=== PATIENT | male | born 1955 | race Caucasian/White ===

== ENCOUNTER 2019-03-24 04:08 | Inpatient (IN) | payer OTHER ==
--- NOTE | 2019-03-24 05:05 | PDOC ---
Attending Attestation - Resident Resident Name: Raghavendra Abarca - ED Attending Attestation I have performed the following: I have examined & evaluated the patient, The case was reviewed & discussed with the resident, I agree w/resident's findings & plan - HPI HPI: 03/24/19 06:10 Pt comes with CP that woke him from sleep and he came to the ER after taking 2 of hs own BP meds as well as 2 baby asa. Here he feels a little better. Pt smokes 2 PPD - Physicial Exam PE: 03/24/19 06:10 Normal exam. Pt is thin - Medical Decision Making 03/24/19 06:01 CBC normal. Chem and cardiac enzyme pending. 03/24/19 06:02 CXR normal heart and mediastinum and hyperinflated lung young of COPD (pt is a 2PPD smoker). 03/24/19 06:04 Pt has elevated trop; however CPK is only 68. We are awaiting rest of chem 03/24/19 06:11 Pt will be admitted to the telelmetry unit for +cardiac enzymes.
--- NOTE | 2019-03-24 05:07 | PDOC ---
History of Present Illness - General Chief Complaint: Chest Pain Stated Complaint: CHEST PAIN Time Seen by Provider: 03/24/19 05:05 History Source: Patient Exam Limitations: No Limitations - History of Present Illness Initial Comments: 03/24/19 05:40 Carolina Hilton is a 63yM with PMHx HTN, HLD, diabetes, smoker, past NH s/p stents presenting with chest pain. Has experienced mild chest pain w exertion for last few days. Woke up from rest at 1am this morning with midline substernal chest pain and bilateral arm pain. Measured BP 180/90, took 2 beta blockers and 2 baby aspirin. In ED, has 3/10 substernal chest pain and associated nausea. Denies fever, n/v, SOB, AB pain, urinary/bowel changes. Past History - Past Medical History Allergies/Adverse Reactions: Allergies Allergy/AdvReac Type Severity Reaction Status Date / Time No Known Allergies Allergy Verified 03/24/19 05:22 Home Medications: Ambulatory Orders NK [No Known Home Medication] 03/24/19 COPD: No - Suicide/Smoking/Psychosocial Hx Smoking History: Current every day smoker Number of Cigarettes Smoked Daily: 20 Information on smoking cessation initiated: Yes Hx Alcohol Use: No Drug/Substance Use Hx: No Review of Systems - Review of Systems Constitutional: No: Chills, Fever HEENTM: No: Eye Pain, Ear Pain, Nose Pain, Throat Pain Respiratory: No: Cough, Shortness of Breath, Stridor, Wheezing Cardiac (ROS): Yes: Chest Pain (midsternal). No: Palpitations, Syncope, Chest Tightness ABD/GI: No: Abdominal Distended, Constipated, Diarrhea, Nausea, Vomiting : No: Burning, Dysuria, Discharge, Flank Pain, Hematuria, Incontinence Musculoskeletal: No: Back Pain, Joint Pain, Muscle Pain, Muscle Weakness Integumentary: No: Bruising, Erythema, Flushing, Lesions Neurological: No: Headache, Paresthesia, Seizure, Tingling, Tremors Psychiatric: No: Anxiety, Depression Endocrine: No: Excessive Sweating, Flushing, Intolerance to Cold, Intolerance to Heat Hematologic/Lymphatic: No: Anemia, Blood Clots, Easy Bleeding *Physical Exam - Vital Signs Last Vital Signs Temp Pulse Resp BP Pulse Ox 98.0 F 66 18 136/76 95 03/24/19 04:20 03/24/19 04:20 03/24/19 04:20 03/24/19 04:20 03/24/19 04:20 - Physical Exam General Appearance: Yes: Nourished, Appropriately Dressed, Mild Distress HEENT: positive: EOMI, ISH, Normal Voice, Hearing Grossly Normal. negative: Scleral Icterus (R), Scleral Icterus (L) Respiratory/Chest: positive: Lungs Clear, Normal Breath Sounds. negative: Chest Tender, Respiratory Distress, Crackles, Rales, Rhonchi, Stridor, Wheezing Cardiovascular: positive: Regular Rhythm, Regular Rate, S1, S2, JVD (to mandible ). negative: Edema, Murmur Gastrointestinal/Abdominal: positive: Normal Bowel Sounds, Flat, Soft. negative : Tender, Organomegaly, Distended, Guarding, Rebound, Hernia Integumentary: positive: Normal Color. negative: Cyanotic, Clammy, Diaphoresis Neurologic: positive: Fully Oriented, Alert, Normal Mood/Affect, Normal Response , Responsive. negative: Confused, Disoriented ED Treatment Course - LABORATORY CBC & Chemistry Diagram: 03/24/19 05:25 03/24/19 05:25 - ADDITIONAL ORDERS Additional order review: Laboratory Results 03/24/19 03/24/19 03/24/19 05:30 05:25 05:25 PT with INR 13.30 H INR 1.13 H Sodium 140 Potassium 4.0 Chloride 107 Carbon Dioxide 26 Anion Gap 7 L BUN 15.6 Creatinine 0.9 Est GFR (CKD-EPI)AfAm 104.24 Est GFR (CKD-EPI)NonAf 89.94 Random Glucose 202 H Calcium 8.8 Total Bilirubin 0.4 AST 10 L ALT 21 Alkaline Phosphatase 82 Creatine Kinase 68 Troponin I 0.21 H Total Protein 7.5 Albumin 3.5 03/24/19 05:25 RBC 5.47 MCV 86.1 MCHC 34.6 RDW 13.8 MPV 9.3 Neutrophils % 70.7 Lymphocytes % 20.2 Monocytes % 6.1 Eosinophils % 2.4 Basophils % 0.6 - Medications Given in the ED: ED Medications Discontinued Medications Generic Name Dose Route Start Last Admin Trade Name Freq PRN Reason Stop Dose Admin Enoxaparin Sodium 80 mg 03/24/19 06:12 03/24/19 06:55 Lovenox - SQ 08/10/19 06:13 80 mg ONCE ONE Administration Ondansetron HCl 4 mg 03/24/19 05:20 03/24/19 05:29 Zofran Odt - SL 03/24/19 05:21 4 mg ONCE ONE Administration Medical Decision Making - Medical Decision Making 03/24/19 06:10 CBC CMP trop EKG CXR EKG shows sinus bradycardia w PVCs trop 0.21 CXR normal Carolina Hilton is a 63yM with PMHx HTN, HLD, diabetes, smoker, past NH s/p stents presenting with chest pain. ACS likely given hx of NH, multiple cardiac risk factors. Given zofran for nausea. EKG showed sinus bradycardia w PVCs. Given 80sq lovenox Plan to admit to Dr. Verduzco inpatient for chest pain, +trop 0.21 - pending EKG - add on BNP Signed out to Dr. Pineda. *DC/Admit/Observation/Transfer Diagnosis at time of Disposition: Chest pain Qualifiers: Chest pain type: unspecified Qualified Code(s): R07.9 - Chest pain, unspecified - Discharge Dispostion Condition at time of disposition: Improved - Referrals - Patient Instructions - Post Discharge Activity
[2019-03-24] MEDS ORDERED: ONDANSETRON *ODT* 4 MG TABLET SL ONE (05:20)
[2019-03-24 05:48] LABS: BASO % 0.6 % (0-2.0); EOS % 2.4 % (0-4.5); HEMATOCRIT 47.1 % (35.4-49); HEMOGLOBIN 16.3 GM/dL (11.7-16.9); LYMPH % 20.2 % (8-40); MCH 29.7 pg (25.7-33.7); MCHC 34.6 g/dl (32.0-35.9); MEAN CELL VOLUME 86.1 fl (80-96); MEAN PLT VOLUME 9.3 fl (7.5-11.1); MONO % 6.1 % (3.8-10.2); NEUT % 70.7 % (42.8-82.8); PLATELET COUNT 163 K/MM3 (134-434); RBC 5.47 M/mm3 (4.00-5.60); RDW 13.8 % (11.9-15.9); WHITE BLOOD COUNT 7.4 K/mm3 (4.0-10.0)
[2019-03-24 06:07] LABS: ALBUMIN 3.5 g/dl (3.4-5.0); BILIRUBIN,TOTAL 0.4 mg/dL (0.2-1); BLOOD UREA NITROGEN 15.6 mg/dL (7-18); CALCIUM 8.8 mg/dL (8.5-10.1); CREATININE 0.9 mg/dL (0.55-1.3); TOT PROT 7.5 g/dl (6.4-8.2)
[2019-03-24] MEDS ORDERED: ENOXAPARIN NA (PORCINE) 80 MG/0.8 ML DISP.SYRIN SQ ONE ×2 (06:12→06:31)
[2019-03-24 06:54] LABS: INR 1.13 (0.83-1.09); PROTHROMBIN TIME (PATIENT) 13.3 SEC (9.7-13.0)
[2019-03-24] MEDS ORDERED: ACETAMINOPHEN 325 MG TABLET (FP) PO PRN (11:36)
--- NOTE | 2019-03-24 11:44 | HP ---
<Sandra Rosas - Last Filed: 03/24/19 14:19> CHIEF COMPLAINT: chest pain PCP: Dr. Casandra Keene Restaurant District Manager: Dr. Mobley HISTORY OF PRESENT ILLNESS: 63M w/ pmhx of SC x4-5 years ago (s/p 3 stents placed), HLD, HTN presents to the ED with complaints of chest pain. Pt states around 1 am, he woke up on his own to make coffee, when he started feeling sub-sternal chest pain radiating to his b/l UE. States this pain was different than the chest pain he had experienced when he had an SC several years ago. Pain began at rest. After experiencing the pain, he reports taking 2 doses of baby aspirin and then proceeded to the hospital. Pt states he can walk up to 300 ft before he starts feeling pain in his b/l LE. Denies n/v, sob, wilson, lightheadedness. Admits to mild dizziness. Pt currently follows up with his business objects report developer, Dr. Mobley. Reports having a 24-hour outpatient spray machine operator at home about 1 year ago, with normal results, although cardiac monitoring was supposed to be done x1 week according to patient. 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 Family History: Father- SC, ~70 y/o, DM, stroke Allergies No Known Allergies Allergy (Verified 03/24/19 05:22) HOME MEDICATIONS: Home Medications Medication Instructions Recorded NK [No Known Home Medication] 03/24/19 REVIEW OF SYSTEMS CONSTITUTIONAL: Absent: fever, chills, diaphoresis, generalized weakness, malaise, loss of appetite, weight change HEENT: Absent: rhinorrhea, nasal congestion, throat pain, throat swelling, difficulty swallowing, mouth swelling, ear pain, eye pain, visual changes CARDIOVASCULAR: chest pain Absent: syncope, palpitations, irregular heart rate, lightheadedness, peripheral edema RESPIRATORY: Absent: cough, shortness of breath, dyspnea with exertion, orthopnea, wheezing, stridor, hemoptysis GASTROINTESTINAL: Absent: abdominal pain, abdominal distension, nausea, vomiting, diarrhea, constipation, melena, hematochezia GENITOURINARY: Absent: dysuria, frequency, urgency, hesitancy, hematuria, flank pain, genital pain MUSCULOSKELETAL: Absent: myalgia, arthralgia, joint swelling, back pain, neck pain SKIN: Absent: rash, itching, pallor HEMATOLOGIC/IMMUNOLOGIC: Absent: easy bleeding, easy bruising, lymphadenopathy, frequent infections ENDOCRINE: Absent: unexplained weight gain, unexplained weight loss, heat intolerance, cold intolerance NEUROLOGIC: Absent: headache, focal weakness or paresthesias, dizziness, unsteady gait, seizure, mental status changes, bladder or bowel incontinence PSYCHIATRIC: Absent: anxiety, depression, suicidal or homicidal ideation, hallucinations. PHYSICAL EXAMINATION Vital Signs - 24 hr 03/24/19 04:20 Temperature 98.0 F Pulse Rate 66 Respiratory 18 Rate Blood Pressure 136/76 O2 Sat by Pulse 95 Oximetry (%) GENERAL: AAOx3. NAD. Well-appearing. HEENT: AT/NC. EOMI. ISH. Moist mucus membranes Neck: Supple, no JVD. CV: RRR. Normal S1, S2. No murmurs noted. No reproducible tenderness. Lungs: CTA B/L. No wheezes, rhonchi, rales noted. Abd: Soft, NT/ND. +BS. No hepatsplenomegaly. Ext: No peripheral edema noted. Laboratory Results - last 24 hr 03/24/19 03/24/19 03/24/19 05:25 05:25 05:25 WBC 7.4 RBC 5.47 Hgb 16.3 Hct 47.1 MCV 86.1 MCH 29.7 MCHC 34.6 RDW 13.8 Plt Count 163 MPV 9.3 Absolute Neuts (auto) 5.3 Neutrophils % 70.7 Lymphocytes % 20.2 Monocytes % 6.1 Eosinophils % 2.4 Basophils % 0.6 Nucleated RBC % 0 PT with INR INR Sodium 140 Potassium 4.0 Chloride 107 Carbon Dioxide 26 Anion Gap 7 L BUN 15.6 Creatinine 0.9 Est GFR (CKD-EPI)AfAm 104.24 Est GFR (CKD-EPI)NonAf 89.94 Random Glucose 202 H Calcium 8.8 Total Bilirubin 0.4 AST 10 L ALT 21 Alkaline Phosphatase 82 Creatine Kinase 68 Troponin I 0.21 H Total Protein 7.5 Albumin 3.5 03/24/19 05:30 WBC RBC Hgb Hct MCV MCH MCHC RDW Plt Count MPV Absolute Neuts (auto) Neutrophils % Lymphocytes % Monocytes % Eosinophils % Basophils % Nucleated RBC % PT with INR 13.30 H INR 1.13 H Sodium Potassium Chloride Carbon Dioxide Anion Gap BUN Creatinine Est GFR (CKD-EPI)AfAm Est GFR (CKD-EPI)NonAf Random Glucose Calcium Total Bilirubin AST ALT Alkaline Phosphatase Creatine Kinase Troponin I Total Protein Albumin Imaging: * CXR: neg ASSESSMENT/PLAN: 63M w/ pmhx of SC x4-5 years ago (s/p 3 stents placed), HLD, HTN presents to the ED with complaints of chest pain. #Chest pain, r/o ACS -Pt has significant history of SC and cardiac stents in the past putting him at a higher cardiac risk. -EKG showed sinus juliet with PVCs -Lovenox 80 mg SQ x1 given in ED -Loading dose Plavix 300 x1 given, then 75 daily -Atorvastatin 40 mg QD -Cardio consult ordered (Dr. Mendosa); possible need for cath -Trops 0.21 --> 0.34; cont to trend, next at 6pm -Echo pending #HTN -hold home Losartan #HLD -Atorvastatin 40 -lipid panel pending #Prophylaxis -DVT: On Lovenox FEN -PO hydration -recheck lytes in AM -low sodium diet Dispo -admit to tele Visit type - Emergency Visit Emergency Visit: Yes ED Registration Date: 03/24/19 Care time: The patient presented to the Emergency Department on the above date and was hospitalized for further evaluation of their emergent condition. - New Patient This patient is new to me today: Yes Date on this admission: 03/24/19 - Critical Care Critical Care patient: No ATTENDING PHYSICIAN STATEMENT I saw and evaluated the patient. I reviewed the resident's note and discussed the case with the resident. I agree with the resident's findings and plan as documented. SUBJECTIVE: OBJECTIVE: ASSESSMENT AND PLAN: <Luis He - Last Filed: 03/24/19 16:34> CHIEF COMPLAINT: PCP: HISTORY OF PRESENT ILLNESS: ER course was notable for: (1) (2) (3) Recent Travel: PAST MEDICAL HISTORY: PAST SURGICAL HISTORY: Social History: Smoking: Alcohol: Drugs: Family History: Allergies No Known Allergies Allergy (Verified 03/24/19 05:22) HOME MEDICATIONS: Home Medications Medication Instructions Recorded Losartan Potassium 25 mg PO DAILY 03/24/19 Omeprazole 40 mg PO DAILY 03/24/19 Simvastatin 10 mg PO DAILY 03/24/19 metFORMIN HCL [Metformin HCl] 500 mg PO TID 03/24/19 REVIEW OF SYSTEMS CONSTITUTIONAL: Absent: fever, chills, diaphoresis, generalized weakness, malaise, loss of appetite, weight change HEENT: Absent: rhinorrhea, nasal congestion, throat pain, throat swelling, difficulty swallowing, mouth swelling, ear pain, eye pain, visual changes CARDIOVASCULAR: Absent: chest pain, syncope, palpitations, irregular heart rate, lightheadedness , peripheral edema RESPIRATORY: Absent: cough, shortness of breath, dyspnea with exertion, orthopnea, wheezing, stridor, hemoptysis GASTROINTESTINAL: Absent: abdominal pain, abdominal distension, nausea, vomiting, diarrhea, constipation, melena, hematochezia GENITOURINARY: Absent: dysuria, frequency, urgency, hesitancy, hematuria, flank pain, genital pain MUSCULOSKELETAL: Absent: myalgia, arthralgia, joint swelling, back pain, neck pain SKIN: Absent: rash, itching, pallor HEMATOLOGIC/IMMUNOLOGIC: Absent: easy bleeding, easy bruising, lymphadenopathy, frequent infections ENDOCRINE: Absent: unexplained weight gain, unexplained weight loss, heat intolerance, cold intolerance NEUROLOGIC: Absent: headache, focal weakness or paresthesias, dizziness, unsteady gait, seizure, mental status changes, bladder or bowel incontinence PSYCHIATRIC: Absent: anxiety, depression, suicidal or homicidal ideation, hallucinations. PHYSICAL EXAMINATION Vital Signs - 24 hr 03/24/19 03/24/19 04:20 13:00 Temperature 98.0 F 97.9 F Pulse Rate 66 58 L Respiratory 18 17 Rate Blood Pressure 136/76 123/55 L O2 Sat by Pulse 95 96 Oximetry (%) GENERAL: Awake, alert, and fully oriented, in no acute distress. HEAD: Normal with no signs of trauma. EYES: Pupils equal, round and reactive to light, extraocular movements intact, sclera anicteric, conjunctiva clear. No lid lag. EARS, NOSE, THROAT: Ears normal, nares patent, oropharynx clear without exudates. Moist mucous membranes. NECK: Normal range of motion, supple without lymphadenopathy, JVD, or masses. LUNGS: Breath sounds equal, clear to auscultation bilaterally. No wheezes, and no crackles. No accessory muscle use. HEART: Regular rate and rhythm, normal S1 and S2 without murmur, rub or gallop. ABDOMEN: Soft, nontender, not distended, normoactive bowel sounds, no guarding, no rebound, no masses. No hepatomegaly or splenomegaly. MUSCULOSKELETAL: Normal range of motion at all joints. No bony deformities or tenderness. No CVA tenderness. UPPER EXTREMITIES: 2+ pulses, warm, well-perfused. No cyanosis. No clubbing. No peripheral edema. LOWER EXTREMITIES: 2+ pulses, warm, well-perfused. No calf tenderness. No peripheral edema. NEUROLOGICAL: Cranial nerves II-XII intact. Normal speech. Normal gait. PSYCHIATRIC: Cooperative. Good eye contact. Appropriate mood and affect. SKIN: Warm, dry, normal turgor, no rashes or lesions noted, normal capillary refill. Laboratory Results - last 24 hr 03/24/19 03/24/19 03/24/19 05:25 05:25 05:25 WBC 7.4 RBC 5.47 Hgb 16.3 Hct 47.1 MCV 86.1 MCH 29.7 MCHC 34.6 RDW 13.8 Plt Count 163 MPV 9.3 Absolute Neuts (auto) 5.3 Neutrophils % 70.7 Lymphocytes % 20.2 Monocytes % 6.1 Eosinophils % 2.4 Basophils % 0.6 Nucleated RBC % 0 PT with INR INR Sodium 140 Potassium 4.0 Chloride 107 Carbon Dioxide 26 Anion Gap 7 L BUN 15.6 Creatinine 0.9 Est GFR (CKD-EPI)AfAm 104.24 Est GFR (CKD-EPI)NonAf 89.94 Random Glucose 202 H Calcium 8.8 Total Bilirubin 0.4 AST 10 L ALT 21 Alkaline Phosphatase 82 Creatine Kinase 68 Troponin I 0.21 H Total Protein 7.5 Albumin 3.5 03/24/19 03/24/19 05:30 12:11 WBC RBC Hgb Hct MCV MCH MCHC RDW Plt Count MPV Absolute Neuts (auto) Neutrophils % Lymphocytes % Monocytes % Eosinophils % Basophils % Nucleated RBC % PT with INR 13.30 H INR 1.13 H Sodium Potassium Chloride Carbon Dioxide Anion Gap BUN Creatinine Est GFR (CKD-EPI)AfAm Est GFR (CKD-EPI)NonAf Random Glucose Calcium Total Bilirubin AST ALT Alkaline Phosphatase Creatine Kinase Troponin I 0.34 H Total Protein Albumin ASSESSMENT/PLAN: ATTENDING PHYSICIAN STATEMENT See teaching attending admission note.
[2019-03-24] MEDS ORDERED: CLOPIDOGREL BISULFATE 300 MG TABLET PO ONE (11:52)
--- NOTE | 2019-03-24 12:15 | PN ---
Teaching Attending Note Name of Resident: Sandra Rosas ATTENDING PHYSICIAN STATEMENT I saw and evaluated the patient. I reviewed the resident's note and discussed the case with the resident. I agree with the resident's findings and plan as documented. 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 Pt reports being in usual state of health day before admission and woke up ~ 1 AM to void and have a cigarette and after getting up he felt a substernal chest pain with radiation to both L & R arm. Pt states he measured home BP was 189/ 90mmhg and he took his BP med (presumably losartan as pt denies being on beta ezio), & 2 baby Aspirins. Pt reported slight diaphoresis and feeling of being lightheaded but denied any dyspnea or loss of consciousness. In past months he reports periodic palpitaitons without trigger and some b/l thigh/leg pain with walking. He denies any trauma to chest, with no cough, rhinorrhea, fevers, chills, N/V/ Diarrhea or dysuria and no recent travels. Pt has a PCP Annalise Royal who he sees every 3 months and has financial services technician but cannot recall name or last visit. Pt denies any chest pain, angina since prior OK 4 yrs ago, notes this present pain differed somewhat from last episode which was more pressurelike and constant. Pt admits w/ periodic nonadherence w/ meds including statin & aspirin. Has been 40 yr smoker ~ 1ppd, denies other toxic habits, father had heart attack in his 70s but strong fam hx of diabetes & HTN. In ED pt was noted to be normotensive, afebrile in no distress, not hypoxic. EKG done showed sinus bradycardia with frequent PVCs, no obvious St elevations in nrml rhythm waves, and pt had initial troponin elevation at 0.21 measured ~ 5 :30AM. Pt was give 80mg (1mg/kg) dose of lovenox in ED and called to IM for admission. Current Medications Generic Name Dose Route Start Last Admin Trade Name Sherwin PRN Reason Stop Dose Admin Acetaminophen 650 mg 03/24/19 11:36 Tylenol - PO Q6H PRN PAIN LEVEL 6-10 Atorvastatin Calcium 40 mg 03/24/19 22:00 Lipitor - PO HS WILL OBJECTIVE:Vital Signs Temperature 98.0 F 03/24/19 04:20 Pulse Rate 66 03/24/19 04:20 Respiratory Rate 18 03/24/19 04:20 Blood Pressure 136/76 03/24/19 04:20 O2 Sat by Pulse Oximetry (%) 95 03/24/19 04:20 GEN: well appearing, slightly diaphoretic elderly man, in no distress, AAOx3 HEENT: EOMI, MMM, no scleral pallor or icterus Neck: No JVD, nocervical LAD, no thyroidomegaly CVS: NRRR, S1 &S2 nrml, no murmurs, rubs or gallops Resp: CTA b/l no wheezing, rales, rhonchi Abd: Soft, ND, NT, normoactive BS, no abd bruits Ext: warm, well perfused, 2+ radial & DP pulses b/l no cyanosis or edema Laboratory Results - last 24 hr 03/24/19 03/24/19 03/24/19 05:25 05:25 05:25 WBC 7.4 RBC 5.47 Hgb 16.3 Hct 47.1 MCV 86.1 MCH 29.7 MCHC 34.6 RDW 13.8 Plt Count 163 MPV 9.3 Absolute Neuts (auto) 5.3 Neutrophils % 70.7 Lymphocytes % 20.2 Monocytes % 6.1 Eosinophils % 2.4 Basophils % 0.6 Nucleated RBC % 0 PT with INR INR Sodium 140 Potassium 4.0 Chloride 107 Carbon Dioxide 26 Anion Gap 7 L BUN 15.6 Creatinine 0.9 Est GFR (CKD-EPI)AfAm 104.24 Est GFR (CKD-EPI)NonAf 89.94 Random Glucose 202 H Calcium 8.8 Total Bilirubin 0.4 AST 10 L ALT 21 Alkaline Phosphatase 82 Creatine Kinase 68 Troponin I 0.21 H Total Protein 7.5 Albumin 3.5 03/24/19 05:30 WBC RBC Hgb Hct MCV MCH MCHC RDW Plt Count MPV Absolute Neuts (auto) Neutrophils % Lymphocytes % Monocytes % Eosinophils % Basophils % Nucleated RBC % PT with INR 13.30 H INR 1.13 ASSESSMENT AND PLAN: Pt is a 63 yo with extensive hx of smoking, DM, HTN, HLD, CAD s/p prior OK & stenting ~ 4 yrs ago presenting with symptoms concerning for unstable angina with in hospital findings of frequent PVCs, sinus juliet and elevated troponins suggestive of NSTEMI. CAD with prior PCI, stent /HTN/HLD Pt already received lovenox 80mg in ED, will c/w 1mg/kg BID dosing (re-verify weight on standing scale) Pt dosed with aspirin today, resume 81mg dose tomorrow, start Plavix w/ loading dose 300mg and then standing 75mg daily Start atorvastatin 10mg and continue daily Pt with no overt signs of de-compensated HF, would initiate on metoprolol 12.5mg BID - trend troponins q6hrs - check Echo - admit to telemetry for monitoring - consult cardiology to evaluate for possible need of cardiac catheterization, stent evaluation - hold losartan for now in event pt needs cath DM hold metformin, check daily FSG checks - check A1c - provide meal coverage short acting insulin DVT PPx: systemic AC w/ lovenox Nutrition: low sodium, moderate carb diabetic
[2019-03-24] MEDS: METOPROLOL TARTRATE 25 MG TABLET (FP) PO SCH ×2 (13:30→21:34)
[2019-03-24 14:18] VITALS: BMI 23.1
--- NOTE | 2019-03-24 15:17 | EKG ---
Test Reason : Blood Pressure : / mmHG Vent. Rate : 068 BPM Atrial Rate : 055 BPM P-R Int : 160 ms QRS Dur : 104 ms QT Int : 412 ms P-R-T Axes : 078 037 073 degrees QTc Int : 438 ms SINUS BRADYCARDIA WITH FREQUENT PREMATURE VENTRICULAR COMPLEXES CANNOT RULE OUT INFERIOR INFARCT , AGE UNDETERMINED ABNORMAL ECG WHEN COMPARED WITH ECG OF 28-APR-2009 08:59, PREMATURE VENTRICULAR COMPLEXES ARE NOW PRESENT MINIMAL CRITERIA FOR INFERIOR INFARCT ARE NOW PRESENT Confirmed by MD Mendosa Daniel ([id number]) on 03/24/2019 3:17:32 PM Referred By: Confirmed By:Marty Mendosa MD
--- NOTE | 2019-03-24 17:21 | CON.CARD ---
Consult Consult Specialty:: Cardiology Reason for Consultation:: Chest pain. CAD - History of Present Illness Chief Complaint: Chest pain History of Present Illness: This is a 63 year old male with a a PMHHTN, HLD, and of known CAD. He is S/P HI about 4 years ago. He presents now with chest pain around 1 am. It was substernal and similar to the chest pain he had with mis past HI. He has 3 prior cardiac stents placed. Trops 0.21 EKG showed sinus juliet with VPC's and no acute changes. We discussed transferring to [facility] for a Cardiac Cath. t. - Alcohol/Substance Use Hx Alcohol Use: No - Smoking History Smoking history: Current every day smoker Aproximately how many cigarettes per day: 20 Home Medications - Allergies Allergies/Adverse Reactions: Allergies Allergy/AdvReac Type Severity Reaction Status Date / Time No Known Allergies Allergy Verified 03/24/19 05:22 - Home Medications Home Medications: Ambulatory Orders Losartan Potassium 25 mg PO DAILY 03/24/19 Omeprazole 40 mg PO DAILY 03/24/19 Simvastatin 10 mg PO DAILY 03/24/19 metFORMIN HCL [Metformin HCl] 500 mg PO TID 03/24/19 Vital Signs: Vital Signs Temperature 97.9 F 03/24/19 13:00 Pulse Rate 58 L 03/24/19 13:00 Respiratory Rate 17 03/24/19 13:00 Blood Pressure 123/55 L 03/24/19 13:00 O2 Sat by Pulse Oximetry (%) 96 03/24/19 13:00 Constitutional: Yes: No Distress Eyes: Yes: WNL HENT: Yes: WNL Neck: Yes: WNL Respiratory: Yes: CTA Bilaterally Gastrointestinal: Yes: Soft Cardiovascular: Yes: Regular Rate and Rhythm Heart Sounds: Yes: S1, S2 Extremities: Yes: WNL Edema: No Neurological: Yes: Alert - Other Data Labs, Other Data: CBC, BMP 03/24/19 05:25 03/24/19 05:25 INR, PTT INR 1.13 (0.83-1.09) H 03/24/19 05:30 Troponin, BNP 03/24/19 03/24/19 05:25 12:11 Troponin I 0.21 H 0.34 H Troponin, BNP 03/24/19 03/24/19 05:25 12:11 Troponin I 0.21 H 0.34 H Assessment/Plan 63 year old male with a a PMHHTN, HLD, and of known CAD. He is S/P HI about 4 years ago. He presents now with chest pain around 1 am. It was substernal and similar to the chest pain he had with mis past HI. He has 3 prior cardiac stents placed. Trops 0.21, 0.34 EKG showed sinus juliet with VPC's and no acute changes. We discussed transferring to [facility] for a Cardiac Cath. Continue Lovenox 80 mg PO BID SQ Metoprolol 12.5 PO BID Lipitor 40 mg daily Plavix 75 mg daily Transferring to [facility] for cardiac cath
[2019-03-24] MEDS: ENOXAPARIN NA (PORCINE) 80 MG/0.8 ML DISP.SYRIN SQ SCH (21:34)
[2019-03-24] MEDS: INSULIN SLIDING SCALE (NOVOLOG) 1 VIAL SQ SCH (21:36)
[2019-03-24] MEDS ORDERED: ATORVASTATIN CA 40 MG TABLET (FP) PO SCH (22:00)
[2019-03-25] MEDS: INSULIN SLIDING SCALE (NOVOLOG) 1 VIAL SQ SCH ×3 (06:15→17:22)
[2019-03-25 08:07] LABS: HEMATOCRIT 43.6 % (35.4-49); HEMOGLOBIN 14.9 GM/dL (11.7-16.9); MCH 29.4 pg (25.7-33.7); MCHC 34.2 g/dl (32.0-35.9); MEAN PLT VOLUME 9.4 fl (7.5-11.1); PLATELET COUNT 147 K/MM3 (134-434); RBC 5.07 M/mm3 (4.00-5.60); RDW 13.5 % (11.9-15.9)
[2019-03-25 08:41] LABS: ALBUMIN 3.3 g/dl (3.4-5.0); BILIRUBIN,TOTAL 0.4 mg/dL (0.2-1); BLOOD UREA NITROGEN 15.7 mg/dL (7-18); CALCIUM 8.5 mg/dL (8.5-10.1); CREATININE 0.8 mg/dL (0.55-1.3); PHOSPHOROUS 2.4 mg/dL (2.5-4.9); POTASSIUM 4.2 mmol/L (3.5-5.1); TOT PROT 6.9 g/dl (6.4-8.2)
[2019-03-25] MEDS: METOPROLOL TARTRATE 25 MG TABLET (FP) PO SCH (09:32)
[2019-03-25] MEDS: ENOXAPARIN NA (PORCINE) 80 MG/0.8 ML DISP.SYRIN SQ SCH (09:33)
[2019-03-25] MEDS ORDERED: CLOPIDOGREL BISULFATE 75 MG TABLET (FP) PO SCH (10:00)
--- NOTE | 2019-03-25 15:31 | PN ---
Physical Exam: SUBJECTIVE: Patient seen and examined, been chest pain free since yesterday.is pending trasnfer to [facility] lab [facility]. OBJECTIVE: Vital Signs Period Temp Pulse Resp BP Sys/Butt Pulse Ox Last 24 Hr 97.9 F-98.2 F 50-58 16-18 126-153/54-71 96 GENERAL: The patient is awake, alert, and fully oriented, in no acute distress. HEAD: Normal with no signs of trauma. EYES: PERRL, extraocular movements intact, sclera anicteric, conjunctiva clear. No ptosis. ENT: Ears normal, nares patent, oropharynx clear without exudates, moist mucous membranes. NECK: Trachea midline, full range of motion, supple. LUNGS: Breath sounds equal, clear to auscultation bilaterally, no wheezes, no crackles, no accessory muscle use. HEART: Regular rate and rhythm, S1, S2 without murmur, rub or gallop. ABDOMEN: Soft, nontender, nondistended, normoactive bowel sounds, no guarding, no rebound, no hepatosplenomegaly, no masses. EXTREMITIES: 2+ pulses, warm, well-perfused, no edema. NEUROLOGICAL: Cranial nerves II through XII grossly intact. Normal speech, gait not observed. PSYCH: Normal mood, normal affect. SKIN: Warm, dry, normal turgor, no rashes or lesions noted Laboratory Results - last 24 hr 03/24/19 03/24/19 03/24/19 17:27 18:20 21:33 WBC RBC Hgb Hct MCV MCH MCHC RDW Plt Count MPV Sodium Potassium Chloride Carbon Dioxide Anion Gap BUN Creatinine Est GFR (CKD-EPI)AfAm Est GFR (CKD-EPI)NonAf POC Glucometer 146 150 Random Glucose Hemoglobin A1c % Calcium Phosphorus Magnesium Total Bilirubin AST ALT Alkaline Phosphatase Troponin I 0.14 H Total Protein Albumin Triglycerides Cholesterol Total LDL Cholesterol HDL Cholesterol 03/25/19 03/25/19 03/25/19 06:10 06:45 06:45 WBC 5.0 RBC 5.07 Hgb 14.9 Hct 43.6 MCV 86.0 MCH 29.4 MCHC 34.2 RDW 13.5 Plt Count 147 MPV 9.4 Sodium 140 Potassium 4.2 Chloride 109 H Carbon Dioxide 25 Anion Gap 7 L BUN 15.7 Creatinine 0.8 Est GFR (CKD-EPI)AfAm 109.42 Est GFR (CKD-EPI)NonAf 94.41 POC Glucometer 178 Random Glucose 143 H Hemoglobin A1c % Calcium 8.5 Phosphorus 2.4 L Magnesium 2.0 Total Bilirubin 0.4 AST 8 L ALT 18 Alkaline Phosphatase 76 Troponin I Total Protein 6.9 Albumin 3.3 L Triglycerides 157 H Cholesterol 185 Total LDL Cholesterol 119 H HDL Cholesterol 42 03/25/19 03/25/19 06:45 10:57 WBC RBC Hgb Hct MCV MCH MCHC RDW Plt Count MPV Sodium Potassium Chloride Carbon Dioxide Anion Gap BUN Creatinine Est GFR (CKD-EPI)AfAm Est GFR (CKD-EPI)NonAf POC Glucometer 85 Random Glucose Hemoglobin A1c % 5.8 Calcium Phosphorus Magnesium Total Bilirubin AST ALT Alkaline Phosphatase Troponin I Total Protein Albumin Triglycerides Cholesterol Total LDL Cholesterol HDL Cholesterol Active Medications Generic Name Dose Route Start Last Admin Trade Name Freq PRN Reason Stop Dose Admin Acetaminophen 650 mg 03/24/19 11:36 Tylenol - PO Q6H PRN PAIN LEVEL 6-10 Atorvastatin Calcium 40 mg 03/24/19 22:00 03/24/19 21:34 Lipitor - PO 40 mg HS WILL Administration Clopidogrel Bisulfate 75 mg 03/25/19 10:00 03/25/19 09:32 Plavix - PO 75 mg DAILY WILL Administration Enoxaparin Sodium 80 mg 03/24/19 19:00 03/25/19 09:33 Lovenox - SQ 80 mg BID WILL Administration Insulin Aspart 1 vial 03/24/19 22:00 03/25/19 10:58 Novolog Vial Sliding Scale - SQ Not Given ACHS [facility] Protocol Metoprolol Tartrate 12.5 mg 03/24/19 13:00 03/25/19 09:32 Lopressor - PO 12.5 mg BID WILL Administration ASSESSMENT/PLAN: 63 yo with known CAD S/P 3 stents and [place] , active smoker, DM, HTN, HLD, P/W sudden onset retrosternal chest pain and has been treated for NSTEMI At this time is to be transfered to [facility] cardiac cath lab manager on Tuesday. CAD with prior PCI, stent /HTN/HLD: has been chest pain free for the past 24 hours Continue Lovenox 80 mg PO BID SQ Metoprolol 12.5 PO BID Lipitor 40 mg daily Plavix 75 mg daily DM hold metformin, check daily FSG checks - check A1c - provide meal coverage short acting insulin DVT PPx: systemic AC w/ lovenox Nutrition: low sodium, moderate carb diabetic
[2019-03-25] MEDS ORDERED: ASPIRIN COATED 81 MG TABLET.EC PO SCH (15:45)
[2019-03-25] MEDS ORDERED: TICAGRELOR 90 MG TABLET PO SCH (15:45)
--- NOTE | 2019-03-25 15:55 | PN ---
Progress Note, Physician Chief Complaint: Chest pain History of Present Illness: This is a 63 year old male with a a PMHHTN, HLD, and of known CAD. He is S/P AR about 4 years ago. He presents now with chest pain around 1 am. It was substernal and similar to the chest pain he had with mis past AR. He has 3 prior cardiac stents placed. Trops 0.34 EKG showed sinus juliet with VPC's and no acute changes. We are transferring to [facility] for a Cardiac Cath. t. - Current Medication List Current Medications: Active Medications Acetaminophen (Tylenol -) 650 mg PO Q6H PRN PRN Reason: PAIN LEVEL 6-10 Aspirin (Ecotrin -) 81 mg PO DAILY [facility] Atorvastatin Calcium (Lipitor -) 80 mg PO HS [facility] Enoxaparin Sodium (Lovenox -) 80 mg SQ BID [facility] Last Admin: 03/25/19 09:33 Dose: 80 mg Insulin Aspart (Novolog Vial Sliding Scale -) 1 vial SQ [facility]; Protocol Last Admin: 03/25/19 10:58 Dose: Not Given Metoprolol Tartrate (Lopressor -) 12.5 mg PO BID [facility] Last Admin: 03/25/19 09:32 Dose: 12.5 mg Ticagrelor (Brilinta -) 90 mg PO DAILY [facility] - Objective Vital Signs: Vital Signs Temperature 97.9 F 03/25/19 05:05 Pulse Rate 52 L 03/25/19 05:05 Respiratory Rate 16 03/25/19 05:05 Blood Pressure 153/71 03/25/19 05:05 O2 Sat by Pulse Oximetry (%) 96 03/24/19 21:00 Constitutional: Yes: No Distress Eyes: Yes: WNL HENT: Yes: WNL Neck: Yes: WNL Cardiovascular: Yes: Regular Rate and Rhythm, S1, S2 Respiratory: Yes: CTA Bilaterally Gastrointestinal: Yes: Normal Bowel Sounds, Soft Extremities: Yes: WNL Edema: No Neurological: Yes: Alert, Oriented Labs: CBC, BMP 03/25/19 06:45 03/25/19 06:45 INR, PTT INR 1.13 (0.83-1.09) H 03/24/19 05:30 Assessment/Plan 63 year old male with a a PMHHTN, HLD, and of known CAD. He is S/P AR about 4 years ago. He presents now with chest pain around 1 am. It was substernal and similar to the chest pain he had with mis past AR. He has 3 prior cardiac stents placed. Trops 0.21, 0.34 EKG showed sinus juliet with VPC's and no acute changes. We discussed transferring to [facility] for a Cardiac Cath. Continue Lovenox 80 mg PO BID SQ Metoprolol 12.5 PO BID Lipitor 40 mg daily Plavix 75 mg daily Transferring to [facility] for cardiac cath
[2019-03-25] MEDS ORDERED: TICAGRELOR 90 MG TABLET PO ONE ×2 (16:45→17:00)
--- NOTE | 2019-03-25 16:45 | DS ---
Physical Exam: SUBJECTIVE: Patient seen and examined, been chest pain free for 24 hours OBJECTIVE: Vital Signs Period Temp Pulse Resp BP Sys/Butt Pulse Ox Last 24 Hr 97.6 F-98.2 F 50-58 16-18 126-153/54-76 96-99 PHYSICAL EXAM GENERAL: The patient is awake, alert, and fully oriented, in no acute distress. HEAD: Normal with no signs of trauma. EYES: PERRL, extraocular movements intact, sclera anicteric, conjunctiva clear. ENT: Ears normal, nares patent, oropharynx clear without exudates, moist mucous membranes. NECK: Trachea midline, full range of motion, supple. LUNGS: Breath sounds equal, clear to auscultation bilaterally, no wheezes, no crackles, no accessory muscle use. HEART: Regular rate and rhythm, S1, S2 without murmur, rub or gallop. ABDOMEN: Soft, nontender, nondistended, normoactive bowel sounds, no guarding, no rebound, no hepatosplenomegaly, no masses. EXTREMITIES: 2+ pulses, warm, well-perfused, no edema. NEUROLOGICAL: Cranial nerves II through XII grossly intact. Normal speech, gait not observed. PSYCH: Normal mood, normal affect. SKIN: Warm, dry, normal turgor, no rashes or lesions noted. LABS Laboratory Results - last 24 hr 03/24/19 03/24/19 03/24/19 17:27 18:20 21:33 WBC RBC Hgb Hct MCV MCH MCHC RDW Plt Count MPV Sodium Potassium Chloride Carbon Dioxide Anion Gap BUN Creatinine Est GFR (CKD-EPI)AfAm Est GFR (CKD-EPI)NonAf POC Glucometer 146 150 Random Glucose Hemoglobin A1c % Calcium Phosphorus Magnesium Total Bilirubin AST ALT Alkaline Phosphatase Troponin I 0.14 H Total Protein Albumin Triglycerides Cholesterol Total LDL Cholesterol HDL Cholesterol 03/25/19 03/25/19 03/25/19 06:10 06:45 06:45 WBC 5.0 RBC 5.07 Hgb 14.9 Hct 43.6 MCV 86.0 MCH 29.4 MCHC 34.2 RDW 13.5 Plt Count 147 MPV 9.4 Sodium 140 Potassium 4.2 Chloride 109 H Carbon Dioxide 25 Anion Gap 7 L BUN 15.7 Creatinine 0.8 Est GFR (CKD-EPI)AfAm 109.42 Est GFR (CKD-EPI)NonAf 94.41 POC Glucometer 178 Random Glucose 143 H Hemoglobin A1c % Calcium 8.5 Phosphorus 2.4 L Magnesium 2.0 Total Bilirubin 0.4 AST 8 L ALT 18 Alkaline Phosphatase 76 Troponin I Total Protein 6.9 Albumin 3.3 L Triglycerides 157 H Cholesterol 185 Total LDL Cholesterol 119 H HDL Cholesterol 42 03/25/19 03/25/19 06:45 10:57 WBC RBC Hgb Hct MCV MCH MCHC RDW Plt Count MPV Sodium Potassium Chloride Carbon Dioxide Anion Gap BUN Creatinine Est GFR (CKD-EPI)AfAm Est GFR (CKD-EPI)NonAf POC Glucometer 85 Random Glucose Hemoglobin A1c % 5.8 Calcium Phosphorus Magnesium Total Bilirubin AST ALT Alkaline Phosphatase Troponin I Total Protein Albumin Triglycerides Cholesterol Total LDL Cholesterol HDL Cholesterol HOSPITAL COURSE: 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 Pt reports being in usual state of health day before admission and woke up ~ 1 AM to void and have a cigarette and after getting up he felt a substernal chest pain with radiation to both L & R arm. Pt states he measured home BP was 189/ 90mmhg and he took his BP med (presumably losartan as pt denies being on beta ezio), & 2 baby Aspirins. Pt reported slight diaphoresis and feeling of being lightheaded but denied any dyspnea or loss of consciousness. In past months he reports periodic palpitaitons without trigger and some b/l thigh/leg pain with walking. He denies any trauma to chest, with no cough, rhinorrhea, fevers, chills, N/V/ Diarrhea or dysuria and no recent travels. 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 Pt denies any chest pain, angina since prior AR 4 yrs ago, notes this present pain differed somewhat from last episode which was more pressurelike and constant. Pt admits w/ periodic nonadherence w/ meds including statin & aspirin. Has been 40 yr smoker ~ 1ppd, denies other toxic habits, father had heart attack in his 70s but strong fam hx of diabetes & HTN. In ED pt was noted to be normotensive, afebrile in no distress, not hypoxic. EKG done showed sinus bradycardia with frequent PVCs, no obvious St elevations in nrml rhythm waves, and pt had initial troponin elevation at 0.21 measured ~ 5 :30AM. Pt was give 80mg (1mg/kg) dose of lovenox in ED and called to IM for admission. in short: 63 yo with known CAD S/P 3 stents and AR , active smoker, DM, HTN, HLD, P/W sudden onset retrosternal chest pain and has been treated for NSTEMI At this time is to be transferee to [facility] laboratory cureman on Tuesday. CAD with prior PCI, stent /HTN/HLD: has been chest pain free for the past 24 hours He was given 1 dose of brilinta on 03/25/2019 at 5 pm Continue Lovenox 80 mg PO BID SQ Metoprolol 12.5 PO BID Lipitor 40 mg daily Plavix 75 mg daily was DCed and ticagrelor given Date of Discharge: 03/25/19 Minutes to complete discharge: 45 Discharge Summary Reason For Visit: CHEST PAIN Current Active Problems Chest pain (Acute) Condition: Stable - Instructions Disposition: TRANSFER ACUTE CARE/OTHER HOSP - Home Medications Comprehensive Discharge Medication List: Ambulatory Orders Losartan Potassium 25 mg PO DAILY 03/24/19 Omeprazole 40 mg PO DAILY 03/24/19 Simvastatin 10 mg PO DAILY 03/24/19 metFORMIN HCL [Metformin HCl] 500 mg PO TID 03/24/19 This patient is new to me today: Yes Date on this admission: 03/25/19 Emergency Visit: Yes ED Registration Date: 03/24/19 Care time: The patient presented to the Emergency Department on the above date and was hospitalized for further evaluation of their emergent condition. Critical Care patient: No - Discharge Referral Referred to [facility] Med P.C.: No
[2019-03-25 16:46] VITALS: BP 150/71; PULSE 59; TEMP 98.3
[2019-03-25] MEDS ORDERED: ATORVASTATIN CA 80 MG TABLET (FP) PO SCH (22:00)
[2019-03-25] MEDS ORDERED: TICAGRELOR 60 MG TABLET PO SCH (22:00)
--- NOTE | 2019-03-29 11:13 | EKG ---
Test Reason : Blood Pressure : / mmHG Vent. Rate : 051 BPM Atrial Rate : 051 BPM P-R Int : 160 ms QRS Dur : 104 ms QT Int : 488 ms P-R-T Axes : 073 038 102 degrees QTc Int : 449 ms SINUS BRADYCARDIA MARKED T WAVE ABNORMALITY, CONSIDER ANTEROLATERAL ISCHEMIA ABNORMAL ECG WHEN COMPARED WITH ECG OF 24-MAR-2019 05:29, PREMATURE VENTRICULAR COMPLEXES ARE NO LONGER PRESENT T WAVE INVERSION NOW EVIDENT IN ANTERIOR LEADS Confirmed by REY MCCLELLAN MD ([id number]) on 03/29/2019 11:13:38 AM Referred By: Confirmed By:REY MCCLELLAN MD
== END 2019-03-25 17:55 | disposition short-term general hospital (02) | DRG 190 ==
LOC: JER 04:08 → JERBED 07:14 → J4S 12:50
PROVIDERS: ADMIT Internal Medicine; ATTEND Internal Medicine
DX: I21.4 Non-ST elevation (NSTEMI) myocardial infarction (principal); I25.10 Atherosclerotic heart disease of native coronary artery without angina pectoris; Z98.61 Coronary angioplasty status; E78.5 Hyperlipidemia, unspecified; I10 Essential (primary) hypertension; R07.9 Chest pain, unspecified; F17.210 Nicotine dependence, cigarettes, uncomplicated
CPT/HCPCS: 36415; 71045-TC-FY; 80053; 80061; 82550; 82962; 83036; 83721; 83735; 84100; 84484; 85025; 85027; 85610; 93005; 93010; 99283-25; Q0162